=== PATIENT | female | born 1960 | race Caucasian/White ===

== ENCOUNTER → 2023-02-12 14:18 | Outpatient (CLI) | payer OTHER, MEDICAID, SELFPAY ==
--- NOTE | 2023-02-12 | DI.ECHO.S_ITS ---
[facility]---------+ [facility] +---------+ : : [address] : [place] : : : : [id number] : : : : Phone: [phone] +---------+ Echocardiogram Report + + :Name: JANETH WILLIAMSON Study Date: 02/12/2023 Height: 63 in : :[facility] ReadingLocation: Weight: 180 lb : : Gender: Female BSA: 1.8 m2 : :: 1960 Age: 62 yrs BP: 161/97 mmHg: :Reason For Study: Dyspnea on Exertion : :Ordering Physician: OBED, : :LISA Performed By: Anaya Schwartz : :Referring: LISA SALAS : + + Interpretation Summary 1) Normal left ventricular thickness, size, wall motion, and systolic function (EF 60-65%). 2) Normal right ventricular size with low low normal function. There is a pacemaker lead in the right ventricle. 3) No significant valvular abnormalities. 5) There is a trivial pericardial effusion noted. 6) No prior Echo available for comparison. Procedure: A two-dimensional transthoracic echocardiogram with color flow and Doppler was performed. The study quality was technically difficult. The patient had an echocardiogram, but there is no comparison study available. A contrast injection of Definity was performed to improve assessment of LV function. The patient was in normal sinus rhythm during the exam. Left Ventricle: The left ventricle is normal in size and wall thickness. The ejection fraction is estimated to be 60-65%. There are no obvious focal wall motion abnormalities noted but poor endocardial definition reduces the sensitivity for the detection of such. Diastolic parameters suggest a relaxation abnormality of the left ventricle, consistent with probable normal filling pressures. Right Ventricle: The right ventricle is normal size. There is a pacemaker lead in the right ventricle. Right ventricular systolic function is at the lower limits of normal. Atria: The left atrial size is normal. Right atrial size is normal. There is no Doppler evidence for an interatrial shunt. Mitral Valve: The mitral valve is normal. There is no mitral valve stenosis. There is trace mitral regurgitation. Aortic Valve: The aortic valve is not well visualized. There is mild aortic valve sclerosis. There is no aortic valve stenosis. No aortic regurgitation is present. Tricuspid Valve: The tricuspid valve is normal. There is no tricuspid stenosis. There is trace tricuspid regurgitation. Pulmonic Valve: The pulmonic valve is not well visualized. There is no pulmonic valvular stenosis. There is trace pulmonic regurgitation. Great Vessels: The aortic root is normal size. The ascending aorta is normal in size. The pulmonary artery is normal size. The inferior vena cava was not well visualized. Pericardium/ Pleura There is a trivial pericardial effusion noted. There is no pleural effusion. MMode/2D Measurements & Calculations LVIDd: 4.0 cm LVOT diam: 1.8 cm LVIDs: 2.8 cm Ao root diam: 2.4 cm FS: 30.0 % asc Aorta Diam: 3.4 cm IVSd: 0.90 cm LVPWd: 0.90 cm LV farmer. diameter/BSA (cm/m^2): 2.2 LV sys. diameter/BSA (cm/m^2): 1.5 LA A2 area: 17.3 cm2 LVLs ap4: 4.9 cm LA A4 area: 14.5 cm2 LA length (vol): 5.3 cm LA vol: 40.3 ml LA vol index: 21.8 ml/m2 LVLd ap2: 7.0 cm TAPSE_phl: 1.7 cm LVLs ap2: 5.9 cm Doppler Measurements & Calculations Ao V2 max: 159.0 cm/sec LVOT Max Tariq: 142.5 cm/sec Ao V2 mean: 108.0 cm/sec LV V1 max P.1 mmHg Ao max P.0 mmHg LV V1 VTI: 28.3 cm Ao mean P.5 mmHg TITO(I,D): 2.2 cm2 Ao V2 VTI: 32.1 cm TITO(V,D): 2.3 cm2 sev ratio: 0.88 TITO indexed to BSA (cm^2/m^2): 1.2 MV E max tariq: 83.0 cm/sec PA V2 max: 115.0 cm/sec MV A max tariq: 84.3 cm/sec PA V2 mean: 75.5 cm/sec MV E/A: 0.98 PA mean P.0 mmHg Med Peak E' Tariq: 8.8 cm/sec PA pr(Accel): 21.9 mmHg E/E' med: 9.4 Lat Peak E' Tariq: 8.1 cm/sec E/E' lat: 10.2 E/e' average: 9.8 MV dec time: 0.22 sec SV(LVOT): 72.0 ml AV VR_phl: 0.90 TITO(VTI)/BSA_phl: 1.2 Reading Physician:12:30 PM
== END ==
PROVIDERS: Referring Provider Internal Medicine Cardiovascular Disease; Visit Provider Internal Medicine Cardiovascular Disease
DX: R06.09 Other forms of dyspnea (principal); R60.0 Localized edema; Z95.0 Presence of cardiac pacemaker; I31.39 Other pericardial effusion (noninflammatory)
CPT/HCPCS: 93306; Q9957